=== PATIENT | male | born 1965 | race African-American/Black ===

== ENCOUNTER 2017-09-07 22:05 | Emergency (ER) | payer SELFPAY ==
[2017-09-07] MEDS ORDERED: Midazolam 5 MG/ML SDV IVPUSH ONE (22:17)
[2017-09-07] MEDS ORDERED: Flumazenil 0.1 MG/ML 5 ML MDV IVPUSH ONE (22:17)
[2017-09-07] MEDS ORDERED: Midazolam 1 MG/ML 2 ML SDV ONE (22:18)
[2017-09-07] MEDS ORDERED: Naloxone 0.4 MG/ML Syringe ONE (22:18)
[2017-09-07] MEDS ORDERED: fentaNYL 100 MCG/2 ML SDV ONE (22:19)
--- NOTE | 2017-09-07 22:21 | EDM.PDOC ---
ED HPI GENERAL MEDICAL PROBLEM - General Chief Complaint: Upper Extremity Injury/Pain Stated Complaint: PT HURT RT ARM AT WORK Time Seen by Provider: 09/07/17 22:12 - History of Present Illness INITIAL COMMENTS - FREE TEXT/NARRATIVE: HISTORY AND PHYSICAL: History of present illness: Patient 32-year-old with concern of acute injury to his right shoulder for dislocation his Congolese is somewhat challenged but he denies any other trauma or concern he denies prior episode he denies any other significant past medical history Review of systems: As per history of present illness and below otherwise all systems reviewed and negative. Past medical history: As per history of present illness and as reviewed below otherwise noncontributory. Surgical history: As per history of present illness and as reviewed below otherwise noncontributory. Social history: No reported history of drug or alcohol abuse. Family history: As per history of present illness and as reviewed below otherwise noncontributory. Physical exam: HEENT: Atraumatic, normocephalic, pupils reactive, negative for conjunctival pallor or scleral icterus, mucous membranes moist, throat clear, neck supple, nontender, trachea midline. Lungs: Clear to auscultation, breath sounds equal bilaterally, chest nontender. Heart: S1S2, regular, negative for clicks, rubs, or JVD. Abdomen: Soft, nondistended, nontender. Negative for masses or hepatosplenomegaly. Negative for costovertebral tenderness. Pelvis: Stable nontender. Genitourinary: Deferred. Rectal: Deferred. Extremities: Right shoulder with step-off and obvious dislocation clinically neurovascular exam is unremarkable range of motion is limited secondary to the presumptive subluxation Neuro: Awake, alert, oriented. Cranial nerves II through XII unremarkable. Cerebellum unremarkable. Motor and sensory unremarkable throughout. Exam nonfocal. Diagnostics: X-ray right shoulder status post reduction Therapeutics: Patient was reduced with traction countertraction fentanyl and Versed was utilized for anxiety and pain Impression: #1 right shoulder subluxation status post reduction #2 right shoulder fracture Definitive disposition and diagnosis as appropriate pending reevaluation and review of above. right shoulder Pain Score (Numeric/FACES): 5 - Related Data Allergies Allergy/AdvReac Type Severity Reaction Status Date / Time No Known Allergies Allergy Verified 09/07/17 22:21 Home Meds: Home Meds . [No Known Home Meds] 09/07/17 [History] Review of Systems - Review of Systems Review Of Systems: ROS reveals no pertinent complaints other than HPI. ED EXAM, GENERAL - Physical Exam Exam: See Below (See dictation) Course - Vital Signs Text/Narrative:: Discussed case with orthopedic surgery at [facility] agrees with shoulder immobilizer and outpatient appointment for follow-up this was discussed patient will be given referral for orthopedic surgery at [place] he sees the shoulder immobilizer as directed Motrin or Tylenol as directed return as needed as discussed Last Recorded V/S: Last Vital Signs Temp 36.6 C 09/07/17 22:05 Pulse 60 09/07/17 22:50 Resp 18 09/07/17 22:50 BP 163/79 H 09/07/17 22:50 Pulse Ox 96 09/07/17 22:50 - Orders/Labs/Meds Orders: Active Orders 24 hr Category Date Time Status Shoulder Comp Rt [CR] Stat Exams 09/07/17 22:31 Taken Meds: Medications Discontinued Medications Generic Name Dose Route Start Last Admin Trade Name Michael PRN Reason Stop Dose Admin Fentanyl 50 mcg 09/07/17 22:17 09/07/17 22:36 Sublimaze IVPUSH 50 mcg Q5M PRN Administration Pain Fentanyl Confirm 09/07/17 22:19 09/07/17 22:44 Sublimaze Administered 09/07/17 22:20 Not Given Dose 100 mcg .ROUTE .STK-MED ONE Flumazenil 0.5 mg 09/07/17 22:17 Romazicon IVPUSH 09/07/17 22:18 ONETIME ONE Midazolam HCl 2 mg 09/07/17 22:17 Versed 5 Mg/Ml IVPUSH 09/07/17 22:18 ONETIME ONE Midazolam HCl Confirm 09/07/17 22:18 09/07/17 22:36 Versed 1 Mg/Ml Administered 09/07/17 22:19 2 mg Dose Administration 2 mg .ROUTE .STK-MED ONE Naloxone HCl 0.4 mg 09/07/17 22:17 09/07/17 22:37 Narcan IVPUSH 09/07/17 22:18 0.4 mg ONETIME ONE Administration Naloxone HCl Confirm 09/07/17 22:18 Narcan Administered 09/07/17 22:19 Dose 0.4 mg .ROUTE .STK-MED ONE Departure - Departure Time of Disposition: 23:09 Disposition: Home, Self-Care 01 Condition: Good Clinical Impression: Shoulder subluxation, right, Shoulder fracture, right - Discharge Information Referrals: PCP,None [Primary Care Provider] - Forms: ED Department Discharge Additional Instructions: The following information is given to patients seen in the emergency department who are being discharged to home. This information is to outline your options for follow-up care. We provide all patients seen in our emergency department with a follow-up referral. The need for follow-up, as well as the timing and circumstances, are variable depending upon the specifics of your emergency department visit. If you don't have a primary care physician on staff, we will provide you with a referral. We always advise you to contact your personal physician following an emergency department visit to inform them of the circumstance of the visit and for follow-up with them and/or the need for any referrals to a consulting specialist. The emergency department will also refer you to a specialist when appropriate. This referral assures that you have the opportunity for followup care with a specialist. All of these measure are taken in an effort to provide you with optimal care, which includes your followup. Under all circumstances we always encourage you to contact your private physician who remains a resource for coordinating your care. When calling for followup care, please make the office aware that this follow-up is from your recent emergency room visit. If for any reason you are refused follow-up, please contact the [facility] emergency department at and asked to speak to the emergency department charge nurse. [facility] [address], [address] [place] [address] Follow-up orthopedic surgery as discussed call for appointment at [place] or in the alternative call for appointment above as available - My Orders Last 24 Hours: My Active Orders 09/07/17 22:31 Shoulder Comp Rt [CR] Stat - Assessment/Plan Last 24 Hours: My Active Orders 09/07/17 22:31 Shoulder Comp Rt [CR] Stat
[2017-09-07] MEDS: fentaNYL 100 MCG/2 ML SDV IVPUSH PRN ×2 (22:35→22:36)
[2017-09-07] MEDS: Naloxone 0.4 MG/ML Syringe IVPUSH ONE ×2 (22:37→23:31)
--- NOTE | 2017-09-08 14:14 | CR ---
EXAM DATE: 09/07/17 PATIENT'S AGE: 52 Patient: FATMATA LONDON Facility: [place], [place] Site . Site : 1965 Study: XRay Shoulder Right [id number] 10:48:52 PM Ordering Physician: Kim Moreno Final Report: INDICATION: Fell at work. Post reduction. TECHNIQUE: Right shoulder, two views COMPARISON: None FINDINGS: Glenohumeral joint alignment within normal limits. Comminuted fracture involving right greater tuberosity with associated fracture at the inferior margin of glenoid, likely sequela from earlier anterior dislocation. Degenerative changes of right AC joint with inferior spurring. Visualized ribs intact. IMPRESSION: 1. No residual right shoulder dislocation injury. Impacted right greater tuberosity fracture with associated fracture at inferior right glenoid. Findings are likely sequela from earlier right shoulder anterior dislocation. Dictated by Zachary Newberry MD @ 09/07/2017 10:55:17 PM Dictated by: Zachary Newberry MD @ 09/07/2017 22:55:23 (Electronic Signature) Report Signed by Proxy. [facility] HOSPITALHossein
== END 2017-09-07 23:40 | disposition home or self-care (01) ==
LOC: MW.ED 22:05
DX: S42.251A Displaced fracture of greater tuberosity of right humerus, initial encounter for closed fracture (principal); S42.141A Displaced fracture of glenoid cavity of scapula, right shoulder, initial encounter for closed fracture; S43.001A Unspecified subluxation of right shoulder joint, initial encounter; W01.0XXA Fall on same level from slipping, tripping and stumbling without subsequent striking against object, initial encounter
CPT/HCPCS: 23665; 73030; 96374; 96375; 99283; J2250; J3010; A9270-GY

== ENCOUNTER 2017-09-11 21:13 | Emergency (ER) | payer OTHER ==
--- NOTE | 2017-09-11 21:56 | EDM.PDOC ---
ED HPI GENERAL MEDICAL PROBLEM - General Chief Complaint: Upper Extremity Injury/Pain Stated Complaint: F/U RT ARM Time Seen by Provider: 09/11/17 21:40 Source of Information: Reports: Patient, Old Records, RN - History of Present Illness INITIAL COMMENTS - FREE TEXT/NARRATIVE: He reportedly was seen for a shoulder dislocation last week. He has not yet followed up with orthopedics but plans to call tomorrow to arrange follow up. He works doing heavy physical labor; shoveling and lifting. He requests a further note for work. He said that he has plenty of pain medicine. right shoulder Pain Score (Numeric/FACES): 3 - Related Data Allergies Allergy/AdvReac Type Severity Reaction Status Date / Time No Known Allergies Allergy Verified 09/07/17 22:21 Home Meds: Home Meds . [No Known Home Meds] 09/07/17 [History] Past Medical History - Past Health History Medical/Surgical History: Denies Medical/Surgical History - Past Surgical History Musculoskeletal Surgical History: Reports: Other (See Below) Other Musculoskeletal Surgeries/Procedures:: shoulder dislocation Social & Family History - Family History Family Medical History: Noncontributory - Tobacco Use Smoking Status *Q: Never Smoker - Recreational Drug Use Recreational Drug Use: No Review of Systems - Review of Systems Review Of Systems: See Below (no other complaint.) ED EXAM, GENERAL - Physical Exam Exam: See Below Free Text/Narrative:: right arm in shoulder sling. NAD Course - Vital Signs Last Recorded V/S: Last Vital Signs Temp 99.4 F 09/11/17 21:13 Pulse 77 09/11/17 21:13 Resp 18 09/11/17 21:13 BP 153/91 H 09/11/17 21:13 Pulse Ox 98 09/11/17 21:13 Departure - Departure Time of Disposition: 21:55 Disposition: Home, Self-Care 01 Condition: Good Clinical Impression: Shoulder injury - Discharge Information Referrals: PCP,None [Primary Care Provider] - Additional Instructions: note to be off of work until Monday follow up with orthopedics. your blood pressure was elevated; a recheck within a month is recommended.
== END 2017-09-11 22:05 | disposition home or self-care (01) ==
LOC: MW.ED 21:13
DX: S49.91XA Unspecified injury of right shoulder and upper arm, initial encounter (principal); X50.0XXA Overexertion from strenuous movement or load, initial encounter
CPT/HCPCS: 99281; 99283